=== PATIENT | female | born 1960 | race Caucasian/White ===

== ENCOUNTER 2018-06-21 13:34 | Emergency (ER) | payer OTHER, BC ==
[2018-06-21] MEDS ORDERED: OXYMETAZOLINE 30 ML NASAL SPRAY EACHNARE ONE (14:14)
[2018-06-21] MEDS ORDERED: SILVER NITRATE APPLICATOR 1 APPL TP ONE ×2 (14:14→14:24)
--- NOTE | 2018-06-21 14:14 | EDPHY ---
H & P Stated Complaint: Epistaxis x 1 hour, stopped with clamp Time Seen by Provider: 06/21/18 14:13 HPI/ROS: CHIEF COMPLAINT: Epistaxis HISTORY OF PRESENT ILLNESS: The patient presents the ED with complaints of left anterior epistaxis that began 1 hr prior to arrival. The patient does have a history of lupus. She is not anticoagulated. She did have a nosebleed yesterday which was treated at urgent care with Afrin only. She returns to the ED today with complaint of recurrent bleed. She denies any chest pain, lightheadedness or additional acute complaints. REVIEW OF SYSTEMS: A comprehensive 10 point review of systems is otherwise negative aside from elements mentioned in the history of present illness. Source: Patient - Personal History Current Tetanus/Diphtheria Vaccine: Yes - Medical/Surgical History Hx Asthma: No Hx Chronic Respiratory Disease: No Hx Diabetes: No Hx Cardiac Disease: No Hx Renal Disease: No Hx Cirrhosis: No Hx Alcoholism: No Hx HIV/AIDS: No Hx Splenectomy or Spleen Trauma: No Other PMH: hysterectomy, nasal, brain biopsy - Social History Smoking Status: Never smoked - Physical Exam Exam: General Appearance: Alert, no distress Eyes: Pupils equal and round no pallor or injection ENT, Mouth: Bleeding from the left anterior nasal septum Respiratory: There are no retractions, lungs are clear to auscultation Cardiovascular: Regular rate and rhythm Gastrointestinal: Abdomen is soft and nontender, no masses, bowel sounds normal Constitutional: Initial Vital Signs Temperature (C) 36.6 C 06/21/18 13:49 Heart Rate 75 06/21/18 13:49 Respiratory Rate 18 06/21/18 13:49 Blood Pressure 140/90 H 06/21/18 13:49 O2 Sat (%) 94 06/21/18 13:49 O2 Delivery Mode Room Air Allergies/Adverse Reactions: codeine Allergy (Verified 06/21/18 13:48) fentanyl Allergy (Verified 06/21/18 13:48) morphine Allergy (Verified 06/21/18 13:48) Penicillins Allergy (Verified 06/21/18 13:48) promethazine Allergy (Verified 06/21/18 13:48) Sulfa (Sulfonamide Antibiotics) Allergy (Verified 06/21/18 13:48) Medical Decision Making Procedures: Procedure: Epistaxis control. After verbal consent was obtained, the patient was anesthetized with topical cocaine. The anterior epistaxis was identified in the left naris. The patient was treated with silver nitrate cautery and Afrin for vaso constriction. Following the procedure the patient was re-examined and the bleeding was well controlled. The patient tolerated the procedure well. The procedure was performed by myself. ED Course/Re-evaluation: The patient presents to the ED with recurrent left nose bleed from an anterior source. The patient received anesthesia with topical cocaine and underwent sore nitrate cautery performed by myself without complication. Re-evaluated the patient at 3:00 p.m.: No rebleeding noted. The patient will be discharged home with a nasal clip to use in the event of recurrent epistaxis. Differential Diagnosis: Differential diagnosis considered includes anterior epistaxis, posterior epistaxis, hypovolemia Departure - Departure Disposition: Home, Routine, Self-Care Clinical Impression: Acute anterior epistaxis Condition: Good Instructions: Nosebleed (ED) Additional Instructions: 1. In the event of recurrent nose bleed blow all clots from your nose and apply the clamp for 10 min. 2. Return to the ED for any uncontrolled bleeding.
[2018-06-21] MEDS ORDERED: COCAINE HCL 4% 4 ML BTL TP ONE (14:15)
[2018-06-21 15:15] VITALS: BP 141/96
== END 2018-06-21 15:16 | disposition home or self-care (01) ==
PROC: 3E09XTZ Introduction of Destructive Agent into Nose, External Approach (ICD-10-PCS; principal; 2018-06-21)
DX: R04.0 Epistaxis (principal); Z87.39 Personal history of other diseases of the musculoskeletal system and connective tissue